=== PATIENT | female | born 1960 | race Caucasian/White ===

== ENCOUNTER 2019-08-30 14:47 | Emergency (ER) | payer OTHER, SELFPAY ==
[2019-08-30 14:57] VITALS: BP 135/86; PULSE 99; RESP 16; TEMP 36.8; O2SAT 100
--- NOTE | 2019-08-30 14:58 | ED.WOUNDLAC ---
HPI - Wound/Laceration General Chief Complaint: Wound/Laceration Stated Complaint: cut on left wrist Time Seen by Provider: 08/30/19 15:03 Source: patient and RN notes reviewed Mode of arrival: ambulatory Limitations: no limitations History of Present Illness HPI narrative: 58-year-old female history of diabetes presents with concern for laceration on the inner side of her left wrist that she sustained while removing a metal shelf. She denies any decreased sensation, range of motion in her hand. Reports she is not up-to-date on her tetanus vaccine. The injury was sustained just prior to arrival. Related Data Home Medications Medication Instructions Recorded Confirmed glimepiride 2 mg PO DAILY 08/30/19 08/30/19 lisinopril 20 mg PO DAILY 08/30/19 08/30/19 lovastatin 20 mg PO DAILY 08/30/19 08/30/19 metformin 1,000 mg PO BID 08/30/19 08/30/19 Allergies Allergy/AdvReac Type Severity Reaction Status Date / Time No Known Allergies Allergy Verified 08/30/19 15:05 Review of Systems Review of Systems: Narrative: CONSTITUTIONAL: Denies malaise, chills, sweats, or fever. SKIN: Reports laceration to the left inner wrist MUSCULOSKELETAL: Denies decreased strength, sensation, range of motion in hand, digits NEUROLOGIC: Denies numbness, weakness. All systems reviewed & are unremarkable except as noted in HPI and below PMFSH Comments At time of signature, agree with nursing past medical, surgical, social and family history. There is no relevant family history pertinent to the presenting complaint Exam Narrative: Exam Narrative: GENERAL: Well-appearing, well-nourished, and in no acute distress. HEAD: Normocephalic, atraumatic. EYES: PERRLA, conjunctivae clear NECK: Supple. CHEST: Speaks in full sentences. No respiratory distress. HEART: Regular rate and rhythm. Normal and equal peripheral pulses. EXTREMITIES: Left hand and digits of hand have normal strength and sensation. 5/5 strength with digit flexion, extension. Range of motion normal. No clubbing, cyanosis, or edema noted. No tenderness. Normal digital cascade with flexion of fingers, median, ulnar and radial nerve intact. Normal sensation of each side of finger. Can perform 'okay' sign, 'cross over finger test of index and middle fingers' and 'thumbs up' sign. No scissoring. Normal thumb opposition. Good capillary refill and radial pulse. Distal capillary refill ?3 seconds. Skin: 3 cm linear laceration noted on the palmar aspect of the left wrist into the subcutaneous tissue NEURO: Alert and oriented x3. PSYCH: Normal mood and affect Course Course Emergency Course: Patient is aware of diagnosis, understands and agrees to treatment plan. Anticipatory guidance given. Patient agrees to follow-up as directed and is aware of reasons to seek care at the emergency department. Portions of this record may have been created with voice recognition software Vital Signs Vital signs: Vital Signs Temperature 98.3 F 08/30/19 14:57 Pulse Rate 99 08/30/19 14:57 Respiratory Rate 16 08/30/19 14:57 Blood Pressure 135/86 08/30/19 14:57 Pulse Oximetry 100 08/30/19 14:57 Temperature 98.3 F 08/30/19 14:57 Pulse Rate 99 08/30/19 14:57 Respiratory Rate 16 08/30/19 14:57 Blood Pressure 135/86 08/30/19 14:57 Pulse Oximetry 100 08/30/19 14:57 Reviewed. Patient has been instructed to follow up with her primary care provider within the next week regarding her elevated blood pressure today. Procedures Laceration Laceration 1: Date: 08/30/19 Time: 15:09 Site: upper extremity Side (If applicable): left Size (cm): 3 Description: linear Depth: simple, single layer Local Anesthetic: lidocaine 1% Pre-repair: wound explored and irrigated ====== Skin Level ====== Skin layer closed with: nylon Size (cm): 4-0 Number of sutures: 5 Technique: simple, interrupted ====== Subc
[2019-08-30] MEDS: TETANUS,DIPHTHERIA,AC PERTUSSIS ADULT (0.5 ML) BOOSTRIX IM (15:10)
== END 2019-08-30 15:40 | disposition home or self-care (01) ==
PROVIDERS: Emergency Provider Nurse Practitioner; PCP Internal Medicine
DX: S61.512A Laceration without foreign body of left wrist, initial encounter (principal); E11.9 Type 2 diabetes mellitus without complications; Z79.84 Long term (current) use of oral hypoglycemic drugs; Z23 Encounter for immunization; W26.8XXA Contact with other sharp object(s), not elsewhere classified, initial encounter
CPT/HCPCS: 12002; 90471; 90715; 99213; G0463

== ENCOUNTER 2019-09-08 10:57 | Emergency (ER) | payer OTHER, SELFPAY ==
[2019-09-08 11:04] VITALS: BP 120/73; PULSE 92; RESP 20; TEMP 36.8; O2SAT 98
--- NOTE | 2019-09-08 11:42 | ED.WOUNDLAC ---
HPI - Wound/Laceration General Chief Complaint: Wound/Laceration Stated Complaint: remove stitches Time Seen by Provider: 09/08/19 11:42 Source: patient Mode of arrival: ambulatory Limitations: no limitations History of Present Illness HPI narrative: Prabha Johnston is a 58 yo female here for suture removal - cut to L wrist 9 days ago - repaired here Related Data Home Medications Medication Instructions Recorded Confirmed glimepiride 2 mg PO DAILY 08/30/19 08/30/19 lisinopril 20 mg PO DAILY 08/30/19 08/30/19 lovastatin 20 mg PO DAILY 08/30/19 08/30/19 metformin 1,000 mg PO BID 08/30/19 08/30/19 Allergies Allergy/AdvReac Type Severity Reaction Status Date / Time No Known Allergies Allergy Verified 08/30/19 15:05 Review of Systems Review of Systems: Narrative: CONSTITUTIONAL: Denies fever, chills, sweats. EYES: Denies visual changes, redness, discharge. ENT: Denies rhinorrhea, congestion, sore throat, otalgia. CARDIOVASCULAR: Denies chest pain, palpitations, edema. RESPIRATORY: Denies dyspnea, wheezing, cough GASTROINTESTINAL: Denies abdominal pain, nausea, vomiting, diarrhea. GENITOURINARY: Denies dysuria, hematuria, abnormal discharge SKIN: Denies rash or itching. Suture removal to left wrist NEUROLOGIC: Denies numbness, or focal weakness. PSYCHIATRIC: Denies anxiety or depression. PMFSH Family History Family History Other Diabetes mellitus Hypertension Social History Social History (Updated 09/08/19 @ 11:52 by Anabela Cole CNP) Smoking status: Former smoker Alcohol intake: never Comments At time of signature, I agree with nursing past medical, surgical, social and family history. There is no relevant family history pertinent to the presenting complaint. Exam Narrative: Exam Narrative: GENERAL: This is a well-nourished, well-developed patient, in mild distress. HEAD: normocephalic, atraumatic. EYES: Sclera clear/white. Vision is grossly intact. EARS: External ears normal, auditory canals clear and without drainage, TMs normal without perforation. Hearing grossly intact. NOSE: External nose normal without nasal discharge, nares without redness, no rhinorrhea. THROAT: Mucous membranes moist, NECK: Neck supple, non-tender CARDIOVASCULAR: Regular rate and rhythm without murmurs, gallops, or rubs. RESPIRATORY: Clear to auscultation. Breath sounds equal bilaterally. No wheezes, rales, or rhonchi. GASTROINTESTINAL: Abdomen soft, SKIN: warm, intact with no suspicious lesions or rash, good texture and turgor. Suture removal to left wrist wound well approximated and healed NEURO: awake, alert, and oriented to person, place and time. There were no obvious focal neurologic abnormalities. Steady gait EXTREMITIES: Normal range of motion. BACK: Nontender without deformity Course Course Emergency Course: 5 sutures removed from left wrist- healed and well approximated Vital Signs Vital signs: Vital Signs Temperature 98.2 F 09/08/19 11:04 Pulse Rate 92 09/08/19 11:04 Respiratory Rate 09/08/19 11:04 Blood Pressure 120/73 09/08/19 11:04 Pulse Oximetry 98 09/08/19 11:04 Temperature 98.2 F 09/08/19 11:04 Pulse Rate 92 09/08/19 11:04 Respiratory Rate 09/08/19 11:04 Blood Pressure 120/73 09/08/19 11:04 Pulse Oximetry 98 09/08/19 11:04 MDM - Wound/Laceration Differential Diagnosis Differential diagnosis: Likely laceration, abrasion and other (suture removal) Discharge Plan Discharge Clinical Impression: Visit for suture removal Patient Disposition: Home, Self-Care Condition: Stable Instructions: Stitches Removal (ED) Prescriptions: No Action lisinopril 20 mg Tablet 20 mg PO DAILY RF: 0 glimepiride 2 mg Tablet 2 mg PO DAILY RF: 0 metformin 1,000 mg Tablet 1,000 mg PO BID RF: 0 lovastatin 20 mg Tablet 20 mg PO DAILY RF: 0 cephalexin 500 mg capsule
== END 2019-09-08 12:03 | disposition home or self-care (01) ==
PROVIDERS: Emergency Provider Nurse Practitioner; PCP Internal Medicine
DX: S61.512D Laceration without foreign body of left wrist, subsequent encounter (principal); W26.8XXD Contact with other sharp object(s), not elsewhere classified, subsequent encounter; E11.9 Type 2 diabetes mellitus without complications; I10 Essential (primary) hypertension; Z87.891 Personal history of nicotine dependence; Z79.84 Long term (current) use of oral hypoglycemic drugs
CPT/HCPCS: 99211; G0463